=== PATIENT | male | born 1995 | race Caucasian/White ===

== ENCOUNTER → 2019-06-18 | Outpatient (CLI) | payer BC | LOC: LAB 11:28 | PROVIDERS: ATTEND Urology | DX: N46.9 Male infertility, unspecified (principal) | CPT/HCPCS: 89320 ==

== ENCOUNTER 2019-08-09 11:46 | Emergency (ER) | payer OTHER, BC ==
[~2019-08-09] VITALS: Ht 180.3 cm; Wt 75.0 kg
--- OUTSIDE RECORDS SUMMARY | 2019-08-09 12:07 | XMS REPORT | Clinical Summary ---
Author Author Admin, Colby HANLEY Organization [facility] Address Unknown Phone Unavailable Allergies, Adverse Reactions, Alerts Allergy Name Reaction Description Start Date Severity Status Pr ovider No Known Allergies Iris Millan LPN Conditions or Problems Problem Name Problem Code Onset Date Status Entry Date Provider Comment Standard Description Annotate BMI 23-23.9 Active Oniel Navarrete MD Body Mass Index between 19-24, adult Infertility, male NOS 606.9 Active Oniel devi MD Male infertility, unspecified Infertility-Male 606.9 Active Oniel Navarrete MD Male infertility, unspecified Medication List Medication Instructions Start Date Stop Date Generic Name NDC Status Provider Patient Instruction No Drug Therapy Prescribed - none known did ask Carmel Millan LPN Vital Signs Date Name Value Unit Range Description blood pressure, diastolic, repeated by physician 72 BP celaya blood pressure, diastolic 72 mm[Hg] BP celaya blood pressure, systolic, repeated by physician 124 BP sys blood pressure, systolic 124 mm[Hg] BP sys height E&M 71 [in_us] Bdy height pulse rate E&M 98 /min Heart rate temperature E&M 98.1 [degF] Body temp erature weight E&M 165 [lb_av] Weight Measure d Diagnostic Results Date Name Value Unit Range Description Lab Report: FSH AND LH/7137/Adult - Chem istry follicle stimulating hormone, serum 0.9 m[iU]/mL 1.6-8.0 luteinizing hormone, serum 2.6 m[iU]/mL 1.5-9.3 Encounters Code Encounter Date Provider Facility [facility]-[id number] Level 3 New Patient 14:14:11 CHILD CARE CENTRE MANAGER J Dave mari MD [facility] Procedures Code Procedure Name Date Entry Date Standard Desc ription CPT-30762 Venipuncture Draw Fee 14:25:33 CHILD CARE CENTRE MANAGER CPT-[id number] (4274F 2P) Patient Reason Influenza immu nization not administered 13:26:17 CHILD CARE CENTRE MANAGER
--- OUTSIDE RECORDS SUMMARY | 2019-08-09 12:07 | XMS REPORT | Clinical Summary ---
Author Author Admin, Colby HANLEY Organization [facility] Address Unknown Phone Unavailable Allergies, Adverse Reactions, [...] Encounters Code Encounter Date Provider Facility [facility]-30025 Level 3 New Patient 14:14:11 DIRECTOR MOBILE MEDIA SOLUTIONS J Dave mari MD [facility] Procedures Code Procedure Name Date Entry Date Standard Desc ription CPT-72041 Venipuncture Draw Fee 14:25:33 DIRECTOR MOBILE MEDIA SOLUTIONS CPT-[id number] (4274F 2P) Patient Reason Influenza immu nization not administered 13:26:17 DIRECTOR MOBILE MEDIA SOLUTIONS
--- OUTSIDE RECORDS SUMMARY | 2019-08-09 12:07 | XMS REPORT | Clinical Summary ---
Author Author Admin, Colby HANLEY Organization [facility] Address Unknown Phone Unavailable Allergies, Adverse [...] 1.5-9.3 Encounters Code Encounter Date Provider Facility [facility]-90124 Level 3 New Patient 14:14:11 FISH NET MAKER J Dave mari MD [facility] Procedures Code Procedure Name Date Entry Date Standard Desc ription CPT-51470 Venipuncture Draw Fee 14:25:33 FISH NET MAKER CPT-[id number] (4274F 2P) Patient Reason Influenza immu nization not administered 13:26:17 FISH NET MAKER
--- OUTSIDE RECORDS SUMMARY | 2019-08-09 12:07 | XMS REPORT | Clinical Summary ---
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
--- OUTSIDE RECORDS SUMMARY | 2019-08-09 12:08 | XMS REPORT | Clinical Summary ---
Author Author Admin, Colby HANLEY Organization [facility] Address Unknown Phone Unavailable Allergies, Adverse Reactions, [...] 1.5-9.3 Encounters Code Encounter Date Provider Facility [facility]-74423 Level 3 New Patient 14:14:11 FACSIMILE OPERATOR J Dave mari MD [facility] Procedures Code Procedure Name Date Entry Date Standard Desc ription CPT-10593 Venipuncture Draw Fee 14:25:33 FACSIMILE OPERATOR CPT-[id number] (4274F 2P) Patient Reason Influenza immu nization not administered 13:26:17 FACSIMILE OPERATOR
--- OUTSIDE RECORDS SUMMARY | 2019-08-09 12:08 | XMS REPORT | Clinical Summary ---
Author Author Admin, Colby HANLEY Organization [facility] Address Unknown Phone Unavailable Allergies, Adverse [...] 1.5-9.3 Encounters Code Encounter Date Provider Facility [facility]-64801 Level 3 New Patient 14:14:11 DOPE DRY HOUSE OPERATOR J Dave mari MD [facility] Procedures Code Procedure Name Date Entry Date Standard Desc ription CPT-23948 Venipuncture Draw Fee 14:25:33 DOPE DRY HOUSE OPERATOR CPT-[id number] (4274F 2P) Patient Reason Influenza immu nization not administered 13:26:17 DOPE DRY HOUSE OPERATOR
--- OUTSIDE RECORDS SUMMARY | 2019-08-09 12:08 | XMS REPORT | Clinical Summary ---
Author Author Admin, Colby HANLEY Organization [facility] Address Unknown Phone Unavailable Allergies, Adverse Reactions, Alerts Allergy Name Reaction Description Start Date Severity Status Pr ovider Allergies Unknown Conditions or Problems Problem Name Problem Code [...] Generic Name NDC Status Provider Patient Instruction Drug Treatment Unknown - unknown Encounters Code Encounter Date Provider Facility CPT-75189 Level 3 New Patient 14:14:11 SPLUNK CONSULTANT Oniel mari MD [facility] Procedures Code Procedure Name Date Entry Date Standard Desc ription CPT-95487 Venipuncture Draw Fee 14:25:33 SPLUNK CONSULTANT CPT-[id number] (4274F 2P) Patient Reason Influenza immu nization not administered 13:26:17 SPLUNK CONSULTANT
--- OUTSIDE RECORDS SUMMARY | 2019-08-09 12:08 | XMS REPORT | Continuity of Care Document ---
Author Organization Unknown Address Unknown Phone Unavailable Allergies There is no data. Medications There is no data. Problems Date Dx Coded Attending Type Code Diagnosis Diagnosed By 05/06/2019 Oniel Ramirez MD N4 6.9 Infertility-Male 05/06/2019 Oniel Ramirez MD N4 6.9 Infertility, male NOS 05/06/2019 Oniel Ramirez MD Z68.23 BMI 23-23.9 06/21/2019 THAIS RAMIREZ MD, Ot N46 .9 MALE INFERTILITY, UNSPECIFIED 07/03/2019 THAIS RAMIREZ MD, Ot N46 .9 MALE INFERTILITY, UNSPECIFIED Procedures There is no data. Results Test Result Range Complete semen analysis - 06/18/19 12:40 Sperm count 37 [mil_us] 60-200 Semen volume measurement 7.0 mL 1.5-5 .0 Spermatozoa motile detection in semen by light microsc opy 40 NRG Spermatoz[place] [morphology] in semen 8 NRG Spermatozoa.abnormal/100 spermatozoa 92 % NRG Encounters ACCT No. Visit Date/Time Discharge Status Pt. Type Provider Facility Loc./Unit Complaint [id number] 07/10/2019 10:47:01 ACT Unknown Oniel Ramirez MD [id number] 06/18/2019 11:28:00 020 23:59:59 CLS Outpatient THAIS RAMIREZ MD [facility] LAB [id number] 06/29/2019 11:00:00 06/29/2019 23:59: 59 CLS [facility]
--- OUTSIDE RECORDS SUMMARY | 2019-08-09 12:08 | XMS REPORT | Clinical Summary ---
Author Author Admin, Colby HANLEY Organization [facility] Address Unknown Phone Unavailable Allergies, Adverse Reactions, [...] unknown Encounters Code Encounter Date Provider Facility CPT-48836 Level 3 New Patient 14:14:11 RIB CLOTH KNITTER Oniel mari MD [facility] Procedures Code Procedure Name Date Entry Date Standard Desc ription CPT-65510 Venipuncture Draw Fee 14:25:33 RIB CLOTH KNITTER CPT-[id number] (4274F 2P) Patient Reason Influenza immu nization not administered 13:26:17 RIB CLOTH KNITTER
--- OUTSIDE RECORDS SUMMARY | 2019-08-09 12:08 | XMS REPORT | Clinical Summary ---
Author Author Admin, Colby HANLEY Organization [facility] Address Unknown Phone Unavailable Allergies, [...] 1.5-9.3 Encounters Code Encounter Date Provider Facility [facility]-54472 Level 3 New Patient 14:14:11 WAREHOUSE DELIVERY MANAGER J Dave mari MD [facility] Procedures Code Procedure Name Date Entry Date Standard Desc ription CPT-78118 Venipuncture Draw Fee 14:25:33 WAREHOUSE DELIVERY MANAGER CPT-[id number] (4274F 2P) Patient Reason Influenza immu nization not administered 13:26:17 WAREHOUSE DELIVERY MANAGER
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
[2019-08-09] MEDS ORDERED: DOLU50TA PO (14:12)
[2019-08-09] MEDS ORDERED: EMTR1TAB7 PO (14:12)
[2019-08-09 14:35] VITALS: BP 139/79
[2019-08-09 21:19] LABS: HEPATITIS C ANTIBODY C Non-Reactive (Non-Reactive)
[2019-08-10 15:38] LABS: HEPATITIS C ANTIBODY C TNP:Duplicate Order
== END 2019-08-09 14:39 | disposition home or self-care (01) ==
LOC: EDUNIT# 11:46 → ER FS 11:49
DX: Z20.6 Contact with and (suspected) exposure to human immunodeficiency virus [HIV] (principal); S61.210A Laceration without foreign body of right index finger without damage to nail, initial encounter; S00.81XA Abrasion of other part of head, initial encounter; Y35.491A Legal intervention involving other sharp objects, law enforcement official injured, initial encounter
CPT/HCPCS: 36415; 80074; 86703; 86803; 99283